=== PATIENT | male | born 1990 | race Caucasian/White ===

== ENCOUNTER 2018-10-27 11:33 | Emergency (ER) | payer MEDICAID ==
[~2018-10-27] VITALS: Ht 175.3 cm; Wt 65.8 kg
[2018-10-27 11:40] VITALS: BP_SYST 135
[2018-10-27] MEDS ORDERED: KETOROLAC TROMETHAMINE 60 MG/2 ML VIAL IM ONE (12:00)
[2018-10-27 12:57] VITALS: BP_SYST 129
== END 2018-10-27 12:57 | disposition home or self-care (01) ==
LOC: SED 11:33
DX: S06.0X0A Concussion without loss of consciousness, initial encounter (principal); F17.210 Nicotine dependence, cigarettes, uncomplicated; V03.99XA Pedestrian with other conveyance injured in collision with car, pick-up truck or van, unspecified whether traffic or nontraffic accident, initial encounter; Y93.89 Activity, other specified; Y92.410 Unspecified street and highway as the place of occurrence of the external cause; Y99.8 Other external cause status
CPT/HCPCS: 70450; 96372; 99284; J1885

== ENCOUNTER 2019-01-31 20:50 | Emergency (ER) | payer MEDICAID ==
[~2019-01-31] VITALS: Ht 175.3 cm; Wt 68.9 kg
[2019-01-31 20:59] VITALS: BP_SYST 118
--- NOTE | 2019-01-31 21:15 | NUR ---
Patient triaged and placed in waiting room. VSS and patient appears in no acute distress at this time. Accompanied by self , awaiting available bed, and MD notified of need for MSE.
--- NOTE | 2019-01-31 22:00 | NUR ---
No ER beds available at this time. NAD.
--- NOTE | 2019-02-01 00:04 | NUR ---
Pt LWBS. Last seen by admitting leaving ER with steady gait, NAD.
== END 2019-02-01 00:04 | disposition left against medical advice (07) ==
LOC: SED 20:50
DX: L02.31 Cutaneous abscess of buttock (principal); Z53.21 Procedure and treatment not carried out due to patient leaving prior to being seen by health care provider

== ENCOUNTER 2019-06-10 12:12 | Emergency (ER) | payer MEDICAID ==
[~2019-06-10] VITALS: Ht 177.8 cm; Wt 65.8 kg
[2019-06-10 12:18] VITALS: BP_SYST 101
[2019-06-10] MEDS ORDERED: IBUPROFEN 800 MG TABLET PO ONE (12:30)
[2019-06-10] MEDS ORDERED: HYDROcodone/ACETAMIN 5-325 MG TAB (NORCO/ VICODIN) PO ONE (12:30)
[2019-06-10 14:10] VITALS: BP_SYST 108
== END 2019-06-10 14:10 | disposition home or self-care (01) ==
LOC: SED 12:12
DX: S43.401A Unspecified sprain of right shoulder joint, initial encounter (principal); S13.4XXA Sprain of ligaments of cervical spine, initial encounter; V43.52XA Car driver injured in collision with other type car in traffic accident, initial encounter; Y93.89 Activity, other specified; Y92.410 Unspecified street and highway as the place of occurrence of the external cause; Y99.8 Other external cause status
CPT/HCPCS: 71045; 72170-TC; 73030; 99283